=== PATIENT | male | born 1995 | race Caucasian/White ===

== ENCOUNTER 2020-11-06 19:14 | Emergency (ER) | payer BC ==
[~2020-11-06] VITALS: Ht 167.6 cm; Wt 56.3 kg
--- NOTE | 2020-11-06 19:43 | NUR ---
PT AMBULATED BACK TO ROOM WITHOUT DIFFICULTY.
--- NOTE | 2020-11-06 19:45 | NUR ---
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 SWELLING AND REDNESS TO L INNER ELBOW AREA.
--- NOTE | 2020-11-06 20:09 | NUR ---
NEHA KENNEY AT .
[2020-11-06] MEDS ORDERED: SULFAMETH./TRIMETHOPRIM DS 800MG/160MG TABLET PO ONE (20:30)
[2020-11-06] MEDS ORDERED: CEPHALEXIN 500 MG CAPSULE PO ONE (20:30)
[2020-11-06] MEDS ORDERED: LIDOCAINE 1%, 10ML INFIL ONE (20:30)
[2020-11-06] MEDS ORDERED: LIDOCAINE-MPF 1%, 5ML ONE (20:39)
[2020-11-06] MEDS ORDERED: SULFAMETH./TRIMETHOPRIM DS 800MG/160MG TABLET ONE (20:39)
[2020-11-06] MEDS ORDERED: CEPHALEXIN 500 MG CAPSULE ONE (20:39)
--- NOTE | 2020-11-06 21:09 | NUR ---
PT'S BP WAS 78/40 WHILE RESTING, THEN 86/44 ON RECHECK. HR 100s. ER PA AWARE, AT BS NOW TO DO I&D.
[2020-11-06] MEDS ORDERED: L.E.T SOLUTION TP ONE ×2 (21:18→21:30)
[2020-11-06] MEDS ORDERED: SODIUM CHLORIDE 0.9% 1,000ML IVBOLUS ONE (22:00)
[2020-11-06 23:02] LABS: BASOPHILS % (AUTO) 0 % (0-1); EOSINOPHILS % (AUTO) 2 % (1-7); LYMPHOCYTES % (AUTO) 4 % (22-44); MEAN CORPUSCULAR HEMOGLOBIN 29.3 pg (27.5-34.5); MEAN PLATELET VOLUME 6.7 fL (7.4-10.4); MONOCYTES % (AUTO) 3 % (2-9); NEUTROPHILS % (AUTO) 92 % (42-75); PLATELET COUNT 298 x10^3/uL (130-400)
[2020-11-06 23:08] LABS: ANION GAP 5 mmol/L (5-15); CALCIUM 8.8 mg/dL (8.5-10.1); CHLORIDE 106 mmol/L (98-107); CREATININE 0.97 mg/dL (0.7-1.3)
[2020-11-06 23:11] LABS: MD NO
--- NOTE | 2020-11-07 00:27 | NUR ---
ERP WAS IN FOR RECHECK.
--- NOTE | 2020-11-07 00:36 | NUR ---
Martin gorman in [facility] - 11/07/20 at 0040 by BREANN GENOVEVA RANDALL PHONE [phone]
--- NOTE | 2020-11-07 00:40 | NUR ---
[facility] PHONE [phone]. PT TO CALL THIS NUMBER FOR [facility] HOME.
[2020-11-07 00:48] VITALS: BP 111/59
--- NOTE | 2020-11-07 00:55 | NUR ---
PT HAS BEEN SLEEPING IN [facility], [facility], BREATHING WNL. WILL BE DISCHARGED. REPORTED TO NICCI CHEEMA.
--- NOTE | 2020-11-07 01:22 | NUR ---
Patient given discharge instructions and they have confirmed that they understand the instructions. Patient ambulatory with steady gait.
== END 2020-11-07 01:24 | disposition home or self-care (01) ==
LOC: ED 19:46
DX: L03.114 Cellulitis of left upper limb (principal); L02.414 Cutaneous abscess of left upper limb; R00.0 Tachycardia, unspecified
CPT/HCPCS: 36415; 80048; 85025; 87040; 96360; 96361; 99285; J7030